=== PATIENT | female | born 1995 | race Caucasian/White ===

== ENCOUNTER 2019-03-19 09:47 | Inpatient (IN) | payer BC ==
[~2019-03-19] VITALS: Ht 167.6 cm; Wt 66.7 kg
--- NOTE | ~2019-03-19 | OR ---
[facility] [address] [place], [place] [address] Draft DATE OF OPERATION: 03/25/2019 SURGEON: David Toledo MD PLATEN PRESS OPERATOR: Dr. Romero. PREOPERATIVE DIAGNOSIS: Large right adnexal mass. POSTOPERATIVE DIAGNOSIS: Large right adnexal mass, pending pathology. PROCEDURE: Laparotomy with RSO. DRAINS: Rosas catheter. PACKS: None. ESTIMATED BLOOD LOSS: 50 mL. INDICATIONS AND FINDINGS: The patient is a 23-year-old female, 0, who has been on control pills, has noted abdominal enlargement for at least a year. She did finally see her primary where she was identified to have a large adnexal mass, which was complex on ultrasound. Her exam shows the mass to be above the umbilicus on the right. Also extended into the apex of the vagina. At the time of surgery, there was no ascites noted. The external portion of the mass was completely smooth. The uterus was very small and appeared normal. The left tube and ovary also appeared very normal. DESCRIPTION OF PROCEDURE: The patient was prepped and draped in the supine position. An incision was made in the midline from the pubic symphysis to the umbilicus with a knife. This incision was extended with the cutting cautery. After the fascia was opened, the incision was extended superiorly and inferiorly. The muscles were bluntly and the peritoneum opened sharply and the incision extended superiorly and inferiorly. Washings PATIENT NAME: KEANU HINOJOSA OPERATIVE REPORT DATE OF : [birth year] REPORT #: [id number] PHYSICIAN: DAVID TOLEDO MD PCP: DANNIELLE TAFOYA REPORT IS CONFIDENTIAL AND NOT TO BE RELEASED WITHOUT AUTHORIZATION [facility] [address], [place] [address] Draft were then obtained. Following this, the mass was elevated into view. This was done with some difficulty given the size of the mass. At this point, the infundibulopelvic ligament could be identified and this was grasped with curved Z clamps x2, divided with the Enciso scissors. A free tie of 0 Vicryl followed by suture ligature of 0 Vicryl was then placed. A 2nd free tie was placed over this just to assure hemostasis as well. Following this, the utero-ovarian pedicle was identified and this was clamped with a curved Z clamp, divided with the Enciso scissors. The broad ligament was then incised until the round ligament was identified. This was grasped and divided, and suture ligated as well. The remaining broad ligament pedicle was then . The mass could then be elevated out of the abdomen. There was no leakage of any fluid at the time of surgery. After removal of the mass, the pelvis was revisualized and the pedicles reinspected. There was some superficial bleeding along the broad ligament and this was controlled with a free tie after use of a hemostat. The pelvis was then re-irrigated and the uterus was identified and found to be normal as was the left tube and ovary. Following this, preparations were made for closure. The peritoneum was identified and was closed with a running suture of 3-0 Vicryl. The muscles were cauterized over the bleeding points, but not brought together in the midline. The fascia was closed from each end to the midline with a running suture of 0 PDS. The subcu tissue was irrigated and bleeding points controlled with cautery. The skin edges were brought together in the subcu with a 3-0 chromic placed intermittently replaced interrupted axis being. The skin incision was then closed with lan. All sponge and needle counts were correct. She tolerated procedure well and was taken to the recovery room in good condition. MD PAMELA Campos/MODL /[id number] cc: DO Minnie Law WHNP Copies: JERMAINE ROMERO DO PATIENT NAME: KEANU HINOJOSA OPERATIVE REPORT DATE OF : [birth year] REPORT #: [id number] PHYSICIAN: DAVID TOLEDO MD PCP: DANNIELLE TAFOYA REPORT IS CONFIDENTIAL AND NOT TO BE RELEASED WITHOUT AUTHORIZATION [facility] [address] [place] [id number] Draft MINNIE SWEENEY ~ PATIENT NAME: KEANU HINOJOSA OPERATIVE REPORT DATE OF : [birth year] REPORT #: [id number] PHYSICIAN: DAVID TOLEDO MD PCP: DANNIELLE TAFOYA REPORT IS CONFIDENTIAL AND NOT TO BE RELEASED WITHOUT AUTHORIZATION
[~2019-03-19 09:47] MED LIST: HYDROCODON-ACE1 EA13 PO; IBUPROFEN400 MG PO; SULFAMETHOXAZO1 EAC1 PO
[2019-03-19] MEDS ORDERED: SPRINTEC1 EACH PO (10:20)
--- NOTE | 2019-03-25 06:07 | NUR ---
TAPE PLACED OVER EARRINGS AND LUMBAR DERMAL PIERCINGS.
--- NOTE | 2019-03-25 08:59 | NUR ---
03/25/19 0859 Viola Arredondo 0839 PT ARRIVED IN PACU AWAKE WITH NO C/O'S. [address] TUBBS AT BEDSIDE. 0855 ANESTHESIA AT BEDSIDE. NO C/O'S PAIN.
--- NOTE | 2019-03-25 09:39 | NUR ---
PT ARRIVED FROM PACU AT 0920. PT ON ROOM AIR, LUNG SOUNDS CLEAR, DENIES SOB. PT REPORT OF INCISIONAL PAIN IN ABD, RATING TOLERABLE AT 5/10, ICE PACK PROVIDED. PT WITH NUMBNESS AT STARTIGN AT L1-L2, UNABLE TO MOVE LEGS OR TOES. MIDLINE INCISION CDI. PT DENIES NAUSEA, BOWEL TONES ACTIVE, VALENCIA CATH IN PLACE, DRAINING YELLOW URINE. DISCUSSED PLAN OF CARE, PAIN MANAGEMENT AND WHAT TO EXPECT POST-OP. PT DENIES OTHER NEEDS AT THIS TIME.
--- NOTE | 2019-03-25 09:46 | NUR ---
PT ALERT, ORIENTED AND SUPPORTED BY LOTS OF FAMILY. PT STATED THIS IS HER FIRST SURGERY, AND SHE IS LOOKING FORWARD TO SHE SAYS, "LAUGHING AND NOT PEEING". I FOUND HER PLEASANT, ABLE TO JOKE AND LAUGH WHICH TOOK THE EDGE OFF FOR HER. WILL IN TO SEE PT, EXTENDED A BLESSING, WILL FOLLOW NEEDED
--- NOTE | 2019-03-25 10:22 | NUR ---
PT RESTING IN BED. VSS. PAIN WELL CONTROLLED WITH ICE PACK, PT DENIES NEED FOR PAIN MEDICATION AT THIS TIME. DERMATOME AT FULL SENSATION AT L2-L3, BEGINNING TO HAVE SOME SENSATION IN LOWER LEGS AND FEET. PT TOLERATED CLEAR LIQUID DIET, ADVANCED TO REGULAR DIET. PT DENIES OTHER NEEDS AT THIS TIME.
--- NOTE | 2019-03-25 11:32 | NUR ---
PT RESTIGNIN BED. VSS. PT ABLE TO MOVE FEET AND TOES, SLIGHTLY DECREASED SENSATION IN FEET. PT COMPLAINT OF PURITITS TO FACE AND ABD, GIVEN NUBAIN PER ORDER. PT STATES PAIN TOLERABLE AT THIS TIME, DENIES NEED FOR PAIN MEDICATION. MIDLINE INCISION WITH SMALL AMOUNT OF SHADOWING TO SUPERIOR PORTION. PT DENIES OTHER NEEDS AT THIS TIME.
--- NOTE | 2019-03-25 12:00 | NUR ---
PT ASKING ABOUT TAKING HOME NICOTINE POUCHES, STATES SHE USES 2-3 AND THEY ARE 3-6MG OF NICOTINE. DISCUSSED WITH DR. TUBBS, TELEPHONE ORDER TO GIVEN 7MG NICOTINE PATCH. DISCUSSED WITH PT AND SHE IS AGREEABLE TO PACTH.
--- NOTE | 2019-03-25 12:19 | NUR ---
PATIENT SITTING UP IN BED FOR LUNCH, TOLERATING REGULAR DIET WELL, GOING SLOWLY. VITALS ARE STABLE. NICOTINE PATCH PLACED TO LEFT SHOULDER.
--- NOTE | 2019-03-25 13:38 | NUR ---
PT MOVED TO M/S FROM PACU. SHE IS ALERT AND AWAKE. SHE MENTIONED SOME SLIGHT SORENESS BUT SEEMED TO BE DEALING APPROPRIATELY. HER EXTRAS CASTING DIRECTOR WAS BY, AND FAMILY STARTING TO TRICKLE IN. RM DARKENED, I SENSE SHE WANTS TO REST. EXTEENDED A BLESSING, WILL FOLLOW NEEDED
--- NOTE | 2019-03-25 14:00 | NUR ---
PT RESTING IN BED. PT RATING PAIN TOLERABLE 3/10 AT REST, GIVEN SCHEDULED TORADOL. EPIDURAL RESOLVED, PT ASSISTED TO STAND AT EDGE OF BED, PT FELT A LITTLE WEAK AND WAS ASSISTED BACK TO BED. PT WITH INCREASED PAIN TO ABD WITH MOVEMENT, EDUCATED ON BRACING ABD, RATED PAIN 5/10. DISCUSSED PAIN MANAGEMENT, PT CONTINUES TO DECLINE NEED FOR NARCOTIC MEDICATIONS, UNDERSTANDS TO CALL IF PAIN IS INCREASING. PT ASKING ABOUT PLAN FOR STAY TODAY AND TOMORROW, DISCUSSED WALKING, CATHETER REMOVAL IN AM, AND PAIN CONTROL. PT STATES PURITIS HAS IMPROVED AFTER NUBAIN. PT DENIES OTHER NEEDS AT THIS TIME.
--- NOTE | 2019-03-25 14:08 | NUR ---
PATIENT RESTING IN BED. VISITORS IN ROOM. VITAL SIGNS AND I&O DONE. CALL LIGHT WITHIN REACH. NO OTHER NEEDS AT THIS TIME
--- NOTE | 2019-03-25 15:39 | NUR ---
PT RESTIGN IN BED. PT RATING PAIN 2-3/10 AT THIS TIME. PT DENIES NEEDS.
--- NOTE | 2019-03-25 17:16 | NUR ---
PATIENT SITTING UP IN BED TAKING HER DINNER. VITAL SIGNS AND I&O DONE. CALL LIGHT WITHIN REACH. NO OTHER NEEDS AT THIS TIME
--- NOTE | 2019-03-25 17:39 | NUR ---
PT ADMITETD FROM PACU. PT ON ROOM AIR, LUNG SOUNDS CLEAR, CONTINUOUS PULSE OX. PAIN WELL CONTROLLED WITH IV TORADOL AND ICE PACKS, HAS NOT REQUIRED PRN PAIN MEDICATION. PT WITH SPINAL RESOLVED, STOOD AT EDGE OF BED. PT TOLERATING REGULAR DIET. NUBAIN GIVEN FOR PURITIS. MIDLINE INCISION CDI. VALENCIA CATH TO BE REMOVED IN AM.
--- NOTE | 2019-03-25 19:10 | NUR ---
BEDSIDE REPORT RECEIVED FROM ASPEN TURNER. PT RESTING IN BED AWAKE. DRESSING CDI AT MIDLINE. IVF INFUSING WNL ORDERED. VALENCIA DRAINING CLEAR YELLOW URINE. SPO2 WNL ON RA. PT DENIES PAIN "IT'S OKAY AFTER SHE GAVE ME MORPHINE AND ICE". ICE PACK IN PLACE. CALL LIGHT IN REACH. NO REQUESTS AT THIS TIME.
--- NOTE | 2019-03-25 19:57 | NUR ---
ROUNDED CHARGE. PATIENT RATES PAIN AT A 5/10. PATIENT GIVEN SCHEDULED MEDICATION PER ORDER. PATIENT DENIES ANY COMMENTS, QUESTIONS, OR CONCERNS. PATIENT DENIES ANY NEEDS. CALL LIGHT IN REACH.
--- NOTE | 2019-03-25 21:00 | NUR ---
PT ASSESSMENT COMPLETE. PT RATES PAIN 2/10 IN ABDOMEN, DENIES NEED FOR PRN MEDICATION. ICE PACK IN PLACE. DRESSING CDI. BOWEL TONES HYPOACTIVE. TINGLING NOTED BUE, BLE. IV FLUSHED WNL, INFUSING WNL ORDRED. SCDS ON. CALL LIGHT IN REACH. ICE WATER PROVIDED.
--- NOTE | 2019-03-25 23:37 | NUR ---
CHECKED ON PT. RESTING IN BED WITH EYES CLOSED. BREATHING EQUAL AND UNLABORED. SPO2 95% ON RA CPOX IN PLACE. VALENCIA DRAINING. SCDS ON.
--- NOTE | 2019-03-26 02:21 | NUR ---
PT ASSESSMENT COMPLETE. PT LYING IN BED AWAKE. RATES PAIN 2.5-3/10 AT INCISION SITE. SCHEDULED TORADOL ADMINISTERED IV. IVF INFUSING WNL ORDERED. PT C/O ITCHING. PRN MEDICATION ADMINISTERED. WARM WASH CLOTH PROVIDED FOR PT TO CLEAN ARMS, SURGICAL SCRUB. DRESSING CDI. BOWEL TONES ACTIVE X 4, ABD SOFT, NON-TENDER. ICE WATER PROVIDED. NO ADDITIONAL REQUESTS. VALENCIA EMPTIED. VSS.
--- NOTE | 2019-03-26 03:26 | NUR ---
CALL LIGHT ANSWERED, NEW BAG IVF INFUSING WNL ORDERED. PT DENIES PAIN AT THIS TIME. NO REQUESTS. CALL LIGHT IN REACH.
--- NOTE | 2019-03-26 06:11 | NUR ---
ANNIE GREWAL D/C'Ricky. VSS. SBA TO RESTROOM FOR ORAL CARE. RICH PAD AND MESH UNDERWEAR PROVIDED, PT ON MENSES. INSTRUCTED TO AVOID TAMPON USE UNTIL MD COWART, VERBALIZES UNDERSTANDING. PT RATES PAIN 5/10 IN ABDOMEN, PRN IV PAIN MEDICATION ADMINISTERED HOLD PER PHARMACY ON PO PAIN MEDICATION. PT RESTING IN BED AWAKE. IVF INFUSING WNL ORDERED. CALL LIGHT IN REACH.
--- NOTE | 2019-03-26 06:50 | NUR ---
PT RESTED WELL THIS SHIFT. VALENCIA D/C'D AT 0545. AMBULATING IN ROOM INDEPENDENTLY. ON MENSES, RICH PAD IN PLACE. DRESSING CDI. BOWEL TONES ACTIVE X 4. PRN MORPHINE X 1 FOR PAIN, SCHEDULED TORADOL. TOLERATING REGULAR DIET. IVF INFUSING WNL ORDERED.
--- NOTE | 2019-03-26 07:05 | NUR ---
BEDSIDE HANDOFF REPORT RECEIVED FROM TUBE SORTER RN. PT RESTING IN BED. PT PROVDED MENU TO ORDER BREAKFAST. PT DENIES OTHER NEEDS AT THIS TIME.
--- NOTE | 2019-03-26 08:45 | NUR ---
PT RESTING IN BED. PT ON ROOM AIR, LUNG SOUNDS CLEAR. PT COMPLAINT OF PAIN TO ABD, GIVEN NORCO. IV SALINE LOCKED PER ORDER. PT WITH GOOD APPETITE, DENIES NAUSEA, BOWEL TONES ACTIVE. MIDLINE INCISION WITH DRESSING IN PLACE, PLAN TO CHANGE DRESSING AFTER SHOWER. CMS INTACT, WITHOUT EDEMA. VALENCIA CATH REMOVED THIS AM, PT DUE TO VOID, FEELS LIKE SHE NEEDS TO GO AND WILL ATTEMPT TO VOID BEFORE SHOWER. PT DENIES OTHER NEEDS AT THIS TIME.
--- NOTE | 2019-03-26 10:30 | NUR ---
DRESSING CHANGED AFTER SHOWER, EDGES WELL APPROXIMATED, LUCY IN PLACE. NICOTINE PATCH PLACE TO RIGHT ARM. PT REQUESTING SECOND NORCO RATING PAIN 5/10, GIVEN. ICE PACK PROVIDED. ENCOURAGED AMBULATION IN [facility] PAIN IS BETTER, PT AGREEABLE. PT DENIES OTHER NEEDS AT THIS TIME.
--- NOTE | 2019-03-26 13:08 | NUR ---
PT WITH PAIN AFTER WAKING FROM NAP. PT RATING PAIN 5/10 TO ABD. PT GIVEN 1 TAB NORCO AND 800 MG OF MOTRIN. PLAN TO GIVE SECOND TAB OF NORCO AT 1400 WHEN IT IS AVAILABLE. PT UNDERSTANDS PLAN AND IS AGREEABLE.
--- NOTE | 2019-03-26 14:08 | NUR ---
PAIN APPEARS TO BE INTENSE FOR PT TODAY. ASPEN TURNER IN TO GIVE PAIN MEDS. PT ALSO APPEARS TO BE DEALING WITH SOME STRESSFUL ISSUES THAT WILL NOT HELP IN HER RECOVERY. 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 GAVE PT A TraciPOST AND CARLOS, SHE WAS VERY THANKFUL. PT FEELS SHE HAS GOOD SUPPORT, REQUESTED PRAYER. WILL FOLLOW NEEDED
--- NOTE | 2019-03-26 14:20 | NUR ---
PT PAIN 4/10 AFTER 1 HOUR FROM RECEIVING NORCO 1 TAB AND MOTRIN, PT REQUESTING SECOND TAB NORCO PLANNED. PT AGREEABLE TO WALK IN SIFUENTES, ABLE TO COMPLETE 1 LAP, TOLERATED WELL, PT NOW SITTING IN THE CHAIR. PT PROVIDED FRESH ICE PACKS. PT DENIES OTHER NEEDS AT THIS TIME.
--- NOTE | 2019-03-26 15:01 | NUR ---
I SET HER UP FOR A SHOWER. SHE TOOK ONE THIS MORNING. CHANGED HER SHEETS. INDEPENDENT. SHE WALKED WITH NURSE. NOW SHE IS RESTING.
--- NOTE | 2019-03-26 17:46 | NUR ---
PT REQUESTING PAIN MEDICATION. PT RATING PAIN 4/10 TO ABD, DISCUSSED WITH PT THAT PAIN DID NOT DECREASE MUCH AFTER SECOND TAB NORCO LAST TIME, PT AGREEABLE TO TAKE 1 TAB, PT UNDERSTANDS TO CALL IF PAIN INCREASES FOR SECOND TAB. PT ENCOURAGED TO DRINK WATER, URINE OUTPUT QS. PT DENIES OTHER NEEDS AT THIS TIME.
--- NOTE | 2019-03-26 18:10 | NUR ---
PT ON ROOM AIR, LUNG SOUNDS CLEAR. PAIN WELL CONTROLLED WITH MORTIN AND NORCO, CONSISTENTLY RATING PAIN 4/10, ICE PACKS ARE HELPFUL. PT VOIDING WITHOUT DIFFICULTY QS. PT WITH GOOD APPETITE, TOLERATING REGULAR DIET. PT SHOWERED AND WALKED IN SIFUENTES WITH RN.
--- NOTE | 2019-03-26 19:29 | NUR ---
REPORT RECEIVED, PT RESTING IN BED, ICE TO ABDOMEN, PT'S ABDOMEN VISUALIZED, GAUZE/ABD DRESSING IS C/D/I, PT DENIES ANY NEEDS AT THIS TIME, CALL LIGHT WITHIN REACH. FALL PRECAUTIONS IN PLACE.
--- NOTE | 2019-03-26 19:53 | NUR ---
IN ROOM TO ADMINISTER NORCO FOR PAIN. DISCUSSED OPTIONS OF TAKING 2 AT A TIME IN THE FUTURE WELL MOTRIN TO HELP WITH PAIN. SHE DENIES FURTHER NEEDS AT THIS TIME, CALL LIGHT IS WITHIN REACH.
--- NOTE | 2019-03-26 20:30 | NUR ---
EVENING MEDS GIVEN, PT GIVEN SCHEDULED MOTRIN, EDUCATION GIVEN REGARDING PAIN MANAGEMENT, ICE APPLIED TO PT'S ABDOMEN, INCISION REMAINS C/D/I, ABD/GAUZE INTACT, PT'S IV SL, SCD'S ON, PT'S LS CLEAR, PT INDEPENDENT IN ROOM, NO NEEDS AT THIS TIME, CALL LIGHT WITHIN REACH.
--- NOTE | 2019-03-26 21:03 | NUR ---
CHARGE NURSE ROUNDING. ASSISTED pt WITH LIGHTS. NO REQUESTS OR COMMENTS AT THIS TIME. CALL LIGHT WITHIN REACH. WHITEBOARD UPDATED.
--- NOTE | 2019-03-26 23:30 | NUR ---
PRN PAIN MEDICATION GIVEN PER EMAR FOR PAIN OF 5/10 RELATED TO ABD, INCIONS REMAINS C/D/I, PT DENIES FURTHER NEEDS, NEW ICE BAGS PROVIDED, CALL LIGHT WITHIN REACH.
--- NOTE | 2019-03-27 01:11 | NUR ---
PT RESTING IN BED, NO NEEDS AT THIS TIME, EYES CLOSED, BREATHS EVEN, CALL LIGHT WITHIN REACH.
--- NOTE | 2019-03-27 03:11 | NUR ---
PT RESTING IN BED, EYES CLOSED, BREATHS EVEN, UNLABORED, NO NEEDS AT THIS TIME, CALL LIGHT WITHIN REACH. FALL PRECAUTIONS IN PLACE.
--- NOTE | 2019-03-27 05:41 | NUR ---
PT C/O 01/12 PAIN RELATED TO ABDOMEN, PRN PAIN MEDICATION GIVEN PER EMAR, PT TOLERATED WELL, SCHEDULED MOTRIN GIVEN, NEW ICE PACKS PROVIDED, PT'S INCISION REMAINS C/D/I, PT STATES THAT PAIN MANAGEMENT HAS IMPROVED WITH CURRENT PAIN MGMT, SEE EMAR, PT DENIES FURTHER NEEDS AT THIS TIME, VSS, UO QS, CALL LIGHT WITHIN REACH.
--- NOTE | 2019-03-27 05:42 | NUR ---
PT AOX4, APPROPRIATE, PT INDEPENDENT IN ROOM, MIDLINE INCISION C/D/I, NO NEW DRAINAGE, PT RECIEVED PRN PAIN MEDICATION X3 THIS SHIFT RELATED TO ABDOMEN, PT'S PAIN MANAGEMENT HAS IMPROVED WITH CURRENT PAIN MGMT, SEE EMAR, SHCEDULED MOTRIN GIVEN, PT'S IV SL, SCD'S ON, PT'S VSS, AFEBRILE, UO QS, USES CALL LIGHT APPROPRIATELY.
--- NOTE | 2019-03-27 07:00 | NUR ---
Report received from ASPEN Lieberman. Pt resting supine in bed with eyes closed and respirations even and unlabored. Call light and h2o in reach.
--- NOTE | 2019-03-27 07:53 | NUR ---
PATIENT RESTING IN BED. PATIENT'S BREAKFAST ORDERDED. CALL LIGHT WITHIN REACH. NO OTHER NEEDS AT THIS TIME
[2019-03-27] MEDS ORDERED: IBUPROFEN800 MG PO (08:47)
[2019-03-27] MEDS ORDERED: NORCO 5-325 TA1 EACH PO (08:48)
--- NOTE | 2019-03-27 09:38 | NUR ---
PT RESTING IN SEMI FOWLERS POSITION IN BED ALERT AND ORIENTED. ASSESSMENT COMPLETED, AM MEDS ADMINISTERED. CALL LIGHT AND H2O IN REACH. PT DENIES FURTHER NEEDS/CONCERNS.
--- NOTE | 2019-03-27 09:50 | NUR ---
PATIENT RESTING IN BED. VITAL SIGNS AND I&O DONE. CALL LIGHT WITHIN REACH. NO OTHER NEEDS AT THIS TIME
--- NOTE | 2019-03-27 10:15 | NUR ---
PT UP AMBULATING IN HALLS WITH STEADY GAIT, DENIES DIZZINESS OR LIGHTHEADEDNESS. 2 NEW ICE PACKS PROVIDED TO PT PER HER REQUEST. NO OTHER NEEDS VOICED.
--- NOTE | 2019-03-27 12:00 | NUR ---
PATIENT SITTING UP IN BED. PATIENT GOES TO WALL IN THE HALLWAY. ONE PERSON ASSISTING. PATIENT BACKS TO ROOM. SETS UP BATHROOM FOR SHOWER. IV WRAPPED
--- NOTE | 2019-03-27 12:14 | NUR ---
PT UP AMBULATING IN HALLS WITH SBA PER MICHAEL MCGHEE WHO ALSO AGREES TO ASSIST PT IN GETTING SET UP FOR SHOWER.
--- NOTE | 2019-03-27 13:14 | NUR ---
PATIENT RESTING IN BED. VITAL SIGNS AND I&O DONE. CALL LIGHT WITHIN REACH. NO OTHER NEEDS AT THIS TIME
--- NOTE | 2019-03-27 14:43 | NUR ---
PATIENT SITTING UP IN BED. FINAL VITAL SIGNS WERE OBATINED PRIOR THO DISCHARGE FROM THE UNIT
== END 2019-03-27 15:30 | disposition home or self-care (01) | DRG 743 ==
LOC: DSVR 03-25 05:40 → MS 03-25 06:45
PROVIDERS: ADMIT Obstetrics & Gynecology
PROC: 0UT50ZZ Resection of Right Fallopian Tube, Open Approach (ICD-10-PCS; principal; 2019-03-25 06:45)
PROC: 0UT00ZZ Resection of Right Ovary, Open Approach (ICD-10-PCS; 2019-03-25 06:45)
DX: N83.8 Other noninflammatory disorders of ovary, fallopian tube and broad ligament (principal); Z79.3 Long term (current) use of hormonal contraceptives; F17.210 Nicotine dependence, cigarettes, uncomplicated
CPT/HCPCS: 00840; 36415; 80048; 85027; 94762; J0330; J0690; J1100; J1644; J1885; J2250; J2270; J2274; J2300; J2405; J2704; J2765; J3010; J7120

== ENCOUNTER 2020-12-25 21:08 | Emergency (ER) | payer OTHER ==
[~2020-12-25] VITALS: Ht 167.6 cm; Wt 66.7 kg
[~2020-12-25 21:08] MED LIST changes: +IBUPROFEN800 MG PO; +NORCO 5-325 TA1 EACH PO; +SPRINTEC1 EACH PO
[2020-12-25] MEDS ORDERED: ASHLYNA 0.15-01 EACH (21:23)
[2020-12-25] MEDS ORDERED: HYDROCODON-ACE1 EA10 PO (23:17)
== END 2020-12-25 23:36 | disposition home or self-care (01) ==
LOC: ED 21:08
DX: S20.212A Contusion of left front wall of thorax, initial encounter (principal); W22.8XXA Striking against or struck by other objects, initial encounter; Z85.43 Personal history of malignant neoplasm of ovary
CPT/HCPCS: 71101; 99283-25